=== PATIENT | male | born 2000 | race Caucasian/White ===

== ENCOUNTER 2023-03-26 06:19 | Emergency (ER) | payer OTHER ==
[~2023-03-26] VITALS: Ht 180.3 cm; Wt 101.4 kg
[~2023-03-26 06:19] MED LIST: DOXYCYCLINE 10100 MG PO
[2023-03-26] MEDS ORDERED: ZOFRAN ODT4 MG PO (06:42)
[2023-03-26 07:19] VITALS: BP 121/71; PULSE 102; TEMP 98.6
== END 2023-03-26 07:29 | disposition home or self-care (01) ==
LOC: COL.ER 06:19
DX: M54.50 Low back pain, unspecified (principal); R11.2 Nausea with vomiting, unspecified

== ENCOUNTER 2023-10-26 12:52 | Emergency (ER) | payer OTHER ==
[~2023-10-26] VITALS: Ht 180.3 cm; Wt 102.3 kg
[~2023-10-26 12:52] MED LIST changes: +ZOFRAN ODT4 MG PO
[2023-10-26 13:17] VITALS: TEMP 97.8
[2023-10-26 14:41] LABS: BASO % 0.3 % (0.0-2.0); EOS # 0.1 K/mm3 (0.0-0.7); EOS % 1.2 % (0.0-4.0); GRAN # 5.6 K/mm3 (1.4-6.5); GRAN % 63.3 % (42.2-75.2); HEMATOCRIT 47.1 % (42.0-52.0); HEMOGLOBIN 16.4 g/dl (13.5-18.0); LYMPH # 2.4 K/mm3 (1.2-3.4); LYMPH % 27.5 % (20.0-51.0); MEAN CELL VOLUME 90 fl (80.0-100.0); MEAN CORPUSCULAR HEMOGLOBIN 31 pg (27-31); MEAN CORPUSCULAR HGB CONC 35 g/dl (33.0-37.0); MEAN PLATELET VOLUME 10.6 fl (7.4-10.4); MONO # 0.7 K/mm3 (0.1-0.6); MONO % 7.4 % (1.7-9.3); PLATELET COUNT 251 K/mm3 (130-400); RED BLOOD COUNT 5.22 M/mm3 (4.20-5.60); REDCELL DISTRIBUTION WIDTH-CV 11.7 % (11.5-14.5)
[2023-10-26 15:09] LABS: ALANINE AMINOTRANSFERASE 27 U/L (0-55); ALBUMIN 3.8 gm/dL (3.5-5.0); ALKALINE PHOSPHATASE 118 U/L (40-150); ANION GAP 9 mmol/L (7-16); AST,SGOT 23 U/L (5-34); BILIRUBIN,TOTAL 0.6 mg/dL (0.2-1.2); BLOOD UREA NITROGEN 10 mg/dL (9-21); CALCIUM 9.2 mg/dL (8.4-10.2); CARBON DIOXIDE 23 mmol/L (22-29); CHLORIDE 109 mmol/L (98-107); CREATININE, serum 0.81 mg/dL (0.72-1.25); GLUCOSE 98 mg/dL (70-99); MAGNESIUM 2.1 mg/dL (1.6-2.6); POTASSIUM 3.8 mmol/L (3.5-4.5); SODIUM 141 mmol/L (136-145); TOTAL PROTEIN 7.7 gm/dL (6.2-8.1)
[2023-10-26 15:24] LABS: TROPONIN-I < 0.010 ng/mL (0.00-0.033)
[2023-10-26] MEDS ORDERED: ATARAX 25MG25 MG/TAB PO (15:39)
[2023-10-26 15:55] VITALS: BP 146/79; PULSE 87
== END 2023-10-26 16:12 | disposition home or self-care (01) ==
LOC: COL.ER 12:52
PROVIDERS: Emergency Medicine
DX: I49.3 Ventricular premature depolarization (principal)